=== PATIENT | female | born 1970 | race Asian ===

== ENCOUNTER 2025-06-27 21:50 | Emergency (ER) | payer MEDICAID ==
[~2025-06-27] VITALS: Ht 162.6 cm; Wt 72.4 kg
[2025-06-27 22:41] LABS: LEUKOCYTE ESTERASE ,URINE NEGATIVE (Neg); NITRITES, URINE NEGATIVE (Neg); OCCULT BLOOD,URINE TRACE-INTACT (Neg)
[2025-06-27 22:43] LABS: UA COLLECTION TYPE CLN CATCH MIDSTREAM
[2025-06-27 22:50] LABS: SQUAMOUS EPITHELIAL CELL,UR FEW /LPF (FEW)
--- NOTE | 2025-06-27 23:44 | RADIOLOGY REPORT ---
CLINICAL INDICATION: R hip pain TECHNIQUE: DI HIP,UNI 4VWS (INCLUDE PELVIS) Comparison: None FINDINGS/IMPRESSION: : There is no evidence of acute fracture or dislocation. Soft tissues are unremarkable.
--- NOTE | 2025-06-28 00:18 | Physician Documentation ---
History of Present Illness ~ Chief Complaint: Hip pain Stated Complaint: FEVER/HIP PAIN Time Seen by MD: 22:35 HPI 55 year old female with constellation of complaints including R hip pain after falling onto R hip several days ago (has been ambulatory since then). Also reports hot flashes but no N/V/D, cough, shortness of breath, urinary symptoms. Tetanus within 5 Years?: No Past Medical History Smoking Status: Never smoker Review of Systems All Other Systems at this time: Reviewed and Negative Physical Exam Vital Signs: RN Vital Signs have been reviewed: Yes, Temperature: 98.1, Source: Oral, Heart Rate: 86, Respiratory Rate: 16, BP: 157/103, Pulse Oximetry: 98, Weight: 72.400 Oxygen Flow Rate: 0 Physical Exam HEENT: PERRL, moist oral mucosa, EOMI GI: nondistended, soft, nontender, no guarding, no rebound MSK: no deformity; R hip +TTP but no deformity, discoloration Skin: w/d/i, no rash Neuro: alert, nonfocal Psych: normal affect Progress Results/Orders Results/Orders Orders - BRIDGETTE OCONNOR MD Hip,Uni 4vws (Include Pelvis) (06/27/25 23:17) Completed Orders - BRIDGETTE OCONNOR MD Ua W/Microscopic, Cult If Ind (06/27/25 22:10) Hip,Uni 4vws (Include Pelvis) (06/27/25 23:17) Vital Signs 06/27/25 21:55 Temp 98.1 Pulse 86 Resp 16 B/P (MAP) 157/103 Pulse Ox 98 O2 Flow Rate 0 Laboratory Tests Test 06/27/25 22:10 Urine Specimen Description Cln catch midstream Urine Color Yellow Urine Clarity Clear Urine pH 5.5 Urine Specific [place] <=1.005 Urine Protein Negative Urine Glucose (UA) Negative Urine Ketones Negative Urine Occult Blood Trace-intact Urine Nitrite Negative Urine Bilirubin Negative Urine Urobilinogen 0.2 Urine Leukocyte Esterase Negative Urine RBC 0-2 Urine WBC 0-4 Urine Squamous Epithelial Cells Few Urine Bacteria Few Urine Culture Indicated Not ind Volume Urine Centrifuged 10 ml Urine Comment Medical Decision Making Findings 55 year old, well-appearing, with benign complaints. Xray and UA unremarkable, reassurance and discharge. Additional Comment Ddx = hip fracture, UTI, perimenopause, contusion, viral URI Departure Disposition: 01 HOME / SELF CARE / HOMELESS Impression: Primary Impression: Superficial bruising Additional Impression: Hip pain Condition: Stable Discharge Instructions: Menopause Referrals: NO PRIMARY CARE PROVIDER (PCP) Education Educated: Patient Educated regarding: diagnosis, treatment, prognosis, need for follow up Signature Scribe Signature: . Attestation: . BRIDGETTE OCONNOR MD Jun 28, 2025 00:18
[2025-06-28 00:26] VITALS: BP 152/99; PULSE 84; RESP 16; TEMP 98.6; O2SAT 99
== END 2025-06-28 00:27 | disposition home or self-care (01) ==
LOC: ER 21:52
DX: S70.01XA Contusion of right hip, initial encounter (principal); X58.XXXA Exposure to other specified factors, initial encounter; Y93.89 Activity, other specified; Y92.89 Other specified places as the place of occurrence of the external cause; Y99.8 Other external cause status
CPT/HCPCS: 73503; 81001; 99284